=== PATIENT | female | born 1990 | race Caucasian/White ===

== ENCOUNTER 2018-06-19 11:00 | Inpatient (IN) | payer OTHER ==
[2018-06-27] MEDS ORDERED: CEFAZOLIN/Water 2 GM/20 ML SYRINGE ONE (05:56)
[2018-06-27] MEDS ORDERED: Fentanyl 100 MCG/2 ML VIAL ONE ×4 (06:54→11:09)
[2018-06-27] MEDS ORDERED: Midazolam HCl 2 mg/2 ml Vial ONE (06:54)
[2018-06-27] MEDS ORDERED: Dexamethasone 4 mg/ml Vial ONE (06:54)
[2018-06-27] MEDS ORDERED: Fentanyl 250 MCG/5 ML VIAL ONE (07:04)
[2018-06-27] MEDS ORDERED: Ondansetron HCl/PF 4 MG/2 ML Vial IVP PRN (10:42)
[2018-06-27] MEDS ORDERED: Promethazine HCl 25 MG/ML VIAL IM PRN ×2 (10:42→11:26)
[2018-06-27] MEDS ORDERED: Promethazine HCl 25 MG/ML VIAL SLOW IVP PRN (10:42)
[2018-06-27] MEDS ORDERED: HYDROcodone/Acetaminophen 10/325 mg Tablet PO PRN ×2 (11:26)
[2018-06-27] MEDS ORDERED: traMADol HCl 50 MG TAB PO PRN ×4 (11:26→13:41)
[2018-06-27] MEDS ORDERED: Ketorolac Tromethamine 30 MG/ML VIAL IVP PRN (11:26)
[2018-06-27] MEDS ORDERED: Ondansetron PF 4 MG/2 ML Vial IVP PRN (11:26)
[2018-06-27] MEDS ORDERED: Ropivacaine 0.2% 550 ML 550 ML NERVE BLCK SCH (11:26)
[2018-06-27] MEDS ORDERED: Zolpidem Tartrate 5 MG TAB PO PRN (11:26)
--- NOTE | 2018-06-27 12:54 | RAD ---
TWO VIEWS RIGHT TIBIA AND FIBULA: Comparison: 05-29-18 History: Nonunion of tibia fracture. FINDINGS/IMPRESSION: Multiple limited intraoperative fluoroscopic views of the right tibia/fibula were submitted for inter pretation. The patient has undergone removal of the fibular plate and screws. Two screws remain in th e fibula. The intramedullary sherrell is still present within the tibia and there is persistent lucencies surrounding the tibial fracture concerning for a nonunion. POS: [place]
[2018-06-27] MEDS ORDERED: Ropivacaine 0.5% HCl/PF (150 MG/30 ML VIAL) ONE (13:01)
[2018-06-27] MEDS ORDERED: Bupivacaine HCl 0.5%/Epinephrine 1:200,000/PF 30 ml Vial ONE (13:01)
[2018-06-27] MEDS ORDERED: Ondansetron PF 4 MG/2 ML Vial ONE (13:19)
[2018-06-27] MEDS ORDERED: Ketorolac Tromethamine 30 MG/ML VIAL ONE (13:19)
[2018-06-27] MEDS ORDERED: Lidocaine 1% PF 5 ML VIAL ONE (13:19)
[2018-06-27] MEDS ORDERED: PHENYLEPHRINE-NS 100 MCG/ML 10 ML SYRINGE ONE (13:19)
[2018-06-27] MEDS ORDERED: PROPOFOL 200 MG/20 ML VIAL ONE (13:19)
[2018-06-27] MEDS ORDERED: Communication Order-Pharmacy FS SCH (13:41)
[2018-06-27] MEDS ORDERED: Ondansetron PF 4 MG/2 ML Vial IV PRN (13:41)
[2018-06-27] MEDS ORDERED: TETANUS AND DIPHTHERIA TOX/PF 0.5 ML DISP.SYRIN IM SCH (13:41)
[2018-06-27 14:37] VITALS: BMI 36.0
[2018-06-27] MEDS: CEFAZOLIN 2 GM/50 ML BAG IVPB SCH ×2 (16:05→21:11)
[2018-06-27] MEDS: Fentanyl 100 MCG/2 ML VIAL IV PRN ×2 (16:05→18:49)
[2018-06-27] MEDS: Aspirin 81 mg Enteric Coated Tablet PO SCH (19:57)
[2018-06-28 05:58] LABS: #Lymphocytes 2.1 thou/uL (1.20-3.40); #Monocytes 0.9 thou/uL (0.11-0.59); #Neutrophils 10.7 thou/uL (1.40-6.50); %Basophils 0.1 % (0.0-1.0); %Eosinophils 0.2 % (0.0-10.0); %Lymphocytes 15.6 % (21.0-51.0); %Monocytes 6.3 % (0.0-10.0); %Neutrophils 77.9 % (42.0-75.0); Hemoglobin 10.5 g/dL (12.0-16.0); Mean Corpuscular HGB CONC 32.2 g/dL (32.0-36.0); Mean Corpuscular Hemoglobin 28.5 pg (27.0-31.0); Mean Corpuscular Volume 88.7 fL (78.0-98.0); Mean Platelet Volume 7.5 fL (7.4-10.4); Platelet Count 359 thou/uL (130-400); RBC Distribution Width 12.1 % (11.5-14.5); Red Blood Cell (RBC) Count 3.67 mill/uL (4.20-5.40); White Blood Cell (WBC) Count 13.8 thou/uL (4.8-10.8)
[2018-06-28] MEDS: CEFAZOLIN 2 GM/50 ML BAG IVPB SCH (06:13)
[2018-06-28] MEDS: Fentanyl 100 MCG/2 ML VIAL IV PRN (06:19)
[2018-06-28] MEDS ORDERED: Cyclobenzaprine 10 MG TAB PO PRN (08:22)
[2018-06-28] MEDS: Aspirin 81 mg Enteric Coated Tablet PO SCH (08:33)
[2018-06-28] MEDS: oxyCODONE/Acetaminophen 5 mg/325 mg Tablet PO PRN ×2 (09:29→13:30)
[2018-06-28 12:01] VITALS: BP 103/66; TEMP 98.2
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
--- NOTE | 2018-07-06 09:04 | DIS ---
DATE OF ADMISSION: 06/27/2018 DATE OF DISCHARGE: 06/28/2018 PREOPERATIVE DIAGNOSIS: Right distal tibial nonunion. POSTOPERATIVE DIAGNOSES: 1. Right distal tibial nonunion. 2. Right anterior distal lower leg ganglion cyst. SURGICAL PROCEDURE: The patient underwent, 1. Exchange reamed nailing of right tibia. 2. [place] of right tibial bone graft, OSKAR. 3. Removal of hardware, right fibula. 4. Excision of distal anterior compartment ganglion cyst. 5. Open bone graft and right tibia nonunion. HOSPITAL COURSE: Hospital stay was grossly unremarkable, admitted to [place] [id number], worked with therapy, d id well on postop day #1. DISCHARGE CONDITION: Good/stable. DISPOSITION: Home with family. FOLLOWUP: Follow up would be in 10-14 days, sooner if there are problems and/or concerns. DISCHARGE MEDICATIONS: Given with usage instructions. Mathew Lozano PA-C dictating for Owen Pemberton M.D.
== END 2018-06-28 13:47 | disposition home or self-care (01) | DRG 494 ==
LOC: SURG A 06-27 05:43
PROVIDERS: ADMIT Orthopaedic Surgery; ATTEND Orthopaedic Surgery
PROC: 0QBG0ZZ Excision of Right Tibia, Open Approach (ICD-10-PCS; principal; 2018-06-27)
PROC: 0QPG04Z Removal of Internal Fixation Device from Right Tibia, Open Approach (ICD-10-PCS; 2018-06-27)
PROC: 0QHG04Z Insertion of Internal Fixation Device into Right Tibia, Open Approach (ICD-10-PCS; 2018-06-27)
PROC: 0LBN0ZZ Excision of Right Lower Leg Tendon, Open Approach (ICD-10-PCS; 2018-06-27)
PROC: 0QUG07Z Supplement Right Tibia with Autologous Tissue Substitute, Open Approach (ICD-10-PCS; 2018-06-27)
DX: S82.301M Unspecified fracture of lower end of right tibia, subsequent encounter for open fracture type I or II with nonunion (principal); M67.461 Ganglion, right knee; V49.9XXD Car occupant (driver) (passenger) injured in unspecified traffic accident, subsequent encounter; J45.909 Unspecified asthma, uncomplicated; Z87.891 Personal history of nicotine dependence
CPT/HCPCS: 36415; 76001; 85025; 96374; A4306; C1713; C1769; G8978-GP-CK; G8979-GP-CI; J0670; J1100; J1885; J2001; J2250; J2405; J2704; J2795; J3010

== ENCOUNTER 2018-06-19 12:04 | Outpatient (CLI) | payer OTHER ==
[2018-06-19 11:41] LABS: BHCG - Serum Negative (NEGATIVE); Pregs Control Background? CLEAR/WHITE (CLR/WHITE); Pregs Control Bar Appear? YES (CONTROL BAR)
[2018-06-19 13:38] LABS: Hemoglobin 13.1 g/dL (12.0-16.0); Mean Corpuscular HGB CONC 32.3 g/dL (32.0-36.0); Mean Corpuscular Hemoglobin 28.5 pg (27.0-31.0); Mean Corpuscular Volume 88.4 fL (78.0-98.0); Mean Platelet Volume 7.7 fL (7.4-10.4); Platelet Count 372 thou/uL (130-400); RBC Distribution Width 12.2 % (11.5-14.5); Red Blood Cell (RBC) Count 4.58 mill/uL (4.20-5.40); White Blood Cell (WBC) Count 9.1 thou/uL (4.8-10.8)
== END 2018-06-19 12:05 | disposition home or self-care (01) ==
LOC: LABBT 12:04
PROVIDERS: ATTEND Orthopaedic Surgery
DX: Z01.812 Encounter for preprocedural laboratory examination (principal); S82.201A Unspecified fracture of shaft of right tibia, initial encounter for closed fracture
CPT/HCPCS: 84703; 85027; 85652; 86140

== ENCOUNTER 2018-07-26 21:46 | Inpatient (IN) | payer OTHER ==
[2018-07-26] MEDS ORDERED: cefTRIAXone\\ROCEPHIN 1 GM VIAL ONE (22:19)
[2018-07-26] MEDS ORDERED: Piperacillin/Tazobactam 3.375 GM VIAL ONE (22:34)
[2018-07-26 22:42] LABS: #Eosinphils 0.1 thou/uL (0.0-0.7); #Lymphocytes 2.2 thou/uL (1.20-3.40); #Monocytes 0.4 thou/uL (0.11-0.59); %Basophils 0.5 % (0.0-1.0); %Eosinophils 1.8 % (0.0-10.0); %Lymphocytes 28.3 % (21.0-51.0); %Monocytes 5.6 % (0.0-10.0); %Neutrophils 63.8 % (42.0-75.0); Hemoglobin 12.2 g/dL (12.0-16.0); Mean Corpuscular HGB CONC 33.2 g/dL (32.0-36.0); Mean Corpuscular Hemoglobin 28.6 pg (27.0-31.0); Mean Corpuscular Volume 86.1 fL (78.0-98.0); Mean Platelet Volume 7.2 fL (7.4-10.4); Platelet Count 402 thou/uL (130-400); RBC Distribution Width 11.4 % (11.5-14.5); Red Blood Cell (RBC) Count 4.26 mill/uL (4.20-5.40); White Blood Cell (WBC) Count 7.8 thou/uL (4.8-10.8)
[2018-07-26 23:01] LABS: ALT (SGPT) 23 U/L (8-55); AST (SGOT) 18 U/L (5-34); Albumin 4.6 g/dL (3.5-5.0); Alkaline Phosphatase 135 U/L (40-150); Anion Gap 15 mmol/L (10-20); BUN (Urea Nitrogen) 12 mg/dL (7.0-18.7); Bilirubin, Total 0.3 mg/dL (0.2-1.2); Calc. Creatinine Clearance 0 mL/min (70-130); Calcium 9.2 mg/dL (7.8-10.44); Carbon Dioxide 22 mmol/L (22-29); Chloride 105 mmol/L (98-107); Estimated GFR-MDRD 83; Globulin 3.3 g/dL (2.4-3.5); Glucose 116 mg/dL (70-105); Potassium 4.1 mmol/L (3.5-5.1); Protein, Total 7.9 g/dL (6.0-8.3); Sodium 138 mmol/L (136-145)
[2018-07-27] MEDS ORDERED: Ondansetron ODT 4 MG TAB SL PRN (01:04)
[2018-07-27] MEDS ORDERED: Ondansetron PF 4 MG/2 ML Vial IVP PRN (01:04)
[2018-07-27] MEDS ORDERED: HYDROcodone/Acetaminophen 5/325 mg Tablet PO PRN ×2 (01:04)
[2018-07-27] MEDS ORDERED: Acetaminophen 325 MG TAB PO PRN (01:04)
[2018-07-27] MEDS: Dextrose 5 %-0.45 % NaCl 1,000 ML IV SCH ×2 (01:39→12:52)
[2018-07-27 02:41] VITALS: BMI 37.2
[2018-07-27] MEDS: Piperacillin/Tazobactam 3.375 GM in Sodium Chloride 0.9% 100 ML IVPB SCH ×2 (03:42→12:52)
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
[2018-07-27] MEDS ORDERED: Vancomycin HCl 1 GM in Premix Bag 1 BAG IVPB SCH (11:00)
[2018-07-27] MEDS ORDERED: PROPOFOL 200 MG/20 ML VIAL ONE (11:25)
[2018-07-27] MEDS ORDERED: Ketorolac Tromethamine 30 MG/ML VIAL ONE (11:25)
[2018-07-27] MEDS ORDERED: Ondansetron PF 4 MG/2 ML Vial ONE (11:25)
[2018-07-27] MEDS ORDERED: Lidocaine 1% PF 5 ML VIAL ONE (11:25)
[2018-07-27] MEDS ORDERED: Fentanyl 100 MCG/2 ML VIAL ONE ×2 (13:50→14:18)
[2018-07-27] MEDS ORDERED: Promethazine HCl 25 MG/ML VIAL ONE (13:58)
[2018-07-27] MEDS ORDERED: HYDROcodone/Acetaminophen 10/325 mg Tablet PO PRN ×2 (14:46)
[2018-07-27] MEDS ORDERED: Ondansetron PF 4 MG/2 ML Vial IV PRN (14:46)
[2018-07-27] MEDS ORDERED: Communication Order-Pharmacy FS SCH (15:00)
[2018-07-27] MEDS ORDERED: CEFAZOLIN/Water 2 GM/20 ML SYRINGE SLOW IVP SCH (15:00)
[2018-07-27] MEDS ORDERED: Promethazine HCl 25 MG/ML VIAL SLOW IVP PRN (15:25)
[2018-07-27] MEDS ORDERED: Ondansetron HCl/PF 4 MG/2 ML Vial IVP PRN (15:25)
[2018-07-27] MEDS ORDERED: Promethazine HCl 25 MG/ML VIAL IM PRN (15:25)
[2018-07-27] MEDS ORDERED: TETANUS AND DIPHTHERIA TOX/PF 0.5 ML DISP.SYRIN IM SCH (16:00)
[2018-07-27 16:08] LABS: #Basophils 0.1 thou/uL (0.0-0.2); #Eosinphils 0.2 thou/uL (0.0-0.7); #Monocytes 0.5 thou/uL (0.11-0.59); #Neutrophils 4.9 thou/uL (1.40-6.50); %Basophils 0.9 % (0.0-1.0); %Eosinophils 2.5 % (0.0-10.0); %Lymphocytes 25.9 % (21.0-51.0); %Monocytes 6.8 % (0.0-10.0); %Neutrophils 63.9 % (42.0-75.0); Hemoglobin 11.2 g/dL (12.0-16.0); Mean Corpuscular HGB CONC 33.8 g/dL (32.0-36.0); Mean Corpuscular Hemoglobin 29.2 pg (27.0-31.0); Mean Corpuscular Volume 86.3 fL (78.0-98.0); Mean Platelet Volume 7.2 fL (7.4-10.4); Platelet Count 366 thou/uL (130-400); RBC Distribution Width 11.5 % (11.5-14.5); Red Blood Cell (RBC) Count 3.85 mill/uL (4.20-5.40); White Blood Cell (WBC) Count 7.6 thou/uL (4.8-10.8)
[2018-07-27 16:28] LABS: ALT (SGPT) 25 U/L (8-55); AST (SGOT) 20 U/L (5-34); Albumin 4.2 g/dL (3.5-5.0); Alkaline Phosphatase 117 U/L (40-150); Anion Gap 12 mmol/L (10-20); BUN (Urea Nitrogen) 10 mg/dL (7.0-18.7); Bilirubin, Total 0.4 mg/dL (0.2-1.2); Calc. Creatinine Clearance 152 mL/min (70-130); Calcium 8.6 mg/dL (7.8-10.44); Carbon Dioxide 24 mmol/L (22-29); Chloride 106 mmol/L (98-107); Estimated GFR-MDRD 82; Globulin 2.9 g/dL (2.4-3.5); Glucose 84 mg/dL (70-105); Potassium 4.2 mmol/L (3.5-5.1); Protein, Total 7.1 g/dL (6.0-8.3); Sodium 138 mmol/L (136-145)
[2018-07-27] MEDS: CEFAZOLIN 2 GM/50 ML-DEXTROSE 2 GM in Premix Bag 1 BAG IVPB SCH (16:49)
[2018-07-27] MEDS ORDERED: traMADol HCl 50 MG TAB PO PRN (17:13)
[2018-07-27] MEDS: traMADol HCl 50 MG TAB PO PRN (18:10)
[2018-07-27] MEDS: Aspirin 81 mg Enteric Coated Tablet PO SCH (20:41)
[2018-07-27] MEDS: Loratadine 10 MG TAB PO SCH (20:41)
--- NOTE | 2018-07-27 22:36 | OP ---
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 POSTOPERATIVE DIAGNOSIS: Chronic nonunion right tibia with a probable chronic infection. SURGEON: Ish Herman M.D. DRY CLEANING MACHINE OPERATOR HELPER: None. ANESTHESIA: General. SPECIMEN SENT: Subcutaneous tissue and bone graft material for culture. NARRATIVE REPORT: Patient was taken to the operating room, where general anesthesia was induced. Ri ght leg was prepped and draped in the usual sterile fashion. She has been placed on vancomycin and Z osyn from the emergency room. Prior to my seeing her, she was covered with antibiotics but this may interfere with cultures. I opened up the distal incision, which was distal and medial. This was the area where her original open fracture occurred. There were several 1 cm open round wound, where the leg is spontaneously drained . I opened up the area between there and extended a little bit pr oximally. The bone have been bone grafted and made a diligent effort to try and remove all of the de vitalized bone graft materials hardware infection. I used curettes and then used pulsatile lav age to clean it out. There was really just a minimal amount of purulent material in the area. Wound was packed open. The sterile dressings applied with plans for postoperative wound care. She was ju st placed on Ancef until definitive cultures were obtained.
[2018-07-28] MEDS: CEFAZOLIN 2 GM/50 ML-DEXTROSE 2 GM in Premix Bag 1 BAG IVPB SCH ×3 (00:19→18:26)
[2018-07-28] MEDS: Cyclobenzaprine 10 MG TAB PO PRN (00:19)
--- NOTE | 2018-07-28 08:22 | RAD ---
RIGHT TIBIA AND FIBULA TWO VIEWS: 07/26/18 HISTORY: Surgery one month ago. Possible incision infection. COMPARISON: Fluoroscopy, 06/27/18. Right ankle radiograph, 05/29/18. FINDINGS: There is evidence of a fractured screw in the distal aspect of the tibia. Additional fixation hardwar e with two distal fibula screws, intramedullary sherrell, and a single proximal and two distal interlockin g screws are noted traversing the tibia. Incompletely healed fracture is identified with evidence of callus formation. There does appear to ulceration along the medial aspect of the distal right lower extremity, worrisom e for an infection. There is some irregularity of the medial right tibia with possible periosteal milo ction. Possibility of infection of the underlying bones cannot be excluded. Tracks from previously re moved screws in the distal fibula are noted. IMPRESSION: 1. Internal fixation hardware as above. 2. Ulceration of the medial distal right lower extremity soft tissue with what appears to be a p eriosteal reaction involving the distal medial right tibia. Findings may represent an infectious proc ess. POS: [place]
[2018-07-28] MEDS: Aspirin 81 mg Enteric Coated Tablet PO SCH ×2 (09:13→20:19)
[2018-07-28] MEDS: traMADol HCl 50 MG TAB PO PRN (09:13)
[2018-07-28] MEDS: Enoxaparin Sodium 30 MG/0.3 ML SYRINGE SC SCH (09:14)
[2018-07-28] MEDS: Fentanyl 100 MCG/2 ML VIAL SLOW IVP PRN (12:42)
[2018-07-28] MEDS ORDERED: Vancomycin HCl 2.5 GM in Sodium Chloride 0.9% 500 ML IVPB SCH (14:00)
[2018-07-28] MEDS ORDERED: CEFAZOLIN/Water 2 GM/20 ML SYRINGE SLOW IVP SCH (17:30)
[2018-07-28] MEDS: Loratadine 10 MG TAB PO SCH (20:19)
[2018-07-28] MEDS ORDERED: Vancomycin HCl 1 GM in Premix Bag 1 BAG IVPB SCH (21:00)
[2018-07-28] MEDS ORDERED: Vancomycin HCl 1.5 GM in Sodium Chloride 0.9% 250 ML 300 ML IVPB SCH (22:00)
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
[2018-07-29] MEDS: Cyclobenzaprine 10 MG TAB PO PRN (00:15)
[2018-07-29] MEDS: Sodium Chloride 0.9% 1,000 ML IV SCH ×2 (00:16→13:33)
[2018-07-29] MEDS: CEFAZOLIN 2 GM/50 ML-DEXTROSE 2 GM in Premix Bag 1 BAG IVPB SCH ×3 (01:38→17:56)
[2018-07-29] MEDS: Enoxaparin Sodium 30 MG/0.3 ML SYRINGE SC SCH ×2 (08:17→20:56)
[2018-07-29] MEDS: Aspirin 81 mg Enteric Coated Tablet PO SCH ×2 (08:17→20:55)
[2018-07-29] MEDS ORDERED: Lidocaine 1% w/Epinephrine 1:100K 30 ML VIAL ONE (12:01)
[2018-07-29] MEDS ORDERED: Neomycin-Polymyxin 1 ML AMP ONE (12:01)
[2018-07-29] MEDS ORDERED: Fentanyl 100 MCG/2 ML VIAL ONE ×5 (12:22→15:19)
[2018-07-29] MEDS ORDERED: Midazolam HCl 2 mg/2 ml Vial ONE (12:22)
[2018-07-29 13:26] LABS: Vancomycin, Trough 10.5 ug/mL
[2018-07-29] MEDS ORDERED: Promethazine HCl 25 MG/ML VIAL IM PRN (14:56)
[2018-07-29] MEDS ORDERED: Ondansetron HCl/PF 4 MG/2 ML Vial IVP PRN (14:56)
[2018-07-29] MEDS ORDERED: Promethazine HCl 25 MG/ML VIAL SLOW IVP PRN (14:56)
[2018-07-29] MEDS: traMADol HCl 50 MG TAB PO PRN (16:08)
[2018-07-29] MEDS ORDERED: PROPOFOL 200 MG/20 ML VIAL ONE (16:24)
[2018-07-29] MEDS ORDERED: Ondansetron PF 4 MG/2 ML Vial ONE (16:24)
[2018-07-29] MEDS ORDERED: Ketorolac Tromethamine 30 MG/ML VIAL ONE (16:24)
[2018-07-29] MEDS ORDERED: Lidocaine 1% PF 5 ML VIAL ONE (16:24)
--- NOTE | 2018-07-29 18:10 | RAD ---
INTRAOPERATIVE FLUOROSCOPY: Date: 07/29/18 HISTORY: Removal and insertion of cement sherrell. COMPARISON: None. EXPOSURE: 39.9 seconds. 1.63 mGy*cm^2. FINDINGS: Intraoperative fluoroscopy demonstrates incompletely healed fracture in the distal tibia. There is a sherrell within the tibial medullary. Screws identified at the level of the distal tibia and fibula. IMPRESSION: Fluoroscopy as above. POS: [place]
[2018-07-29] MEDS: oxyCODONE/Acetaminophen 5 mg/325 mg Tablet PO PRN (19:13)
[2018-07-29] MEDS: Loratadine 10 MG TAB PO SCH (20:56)
[2018-07-30] MEDS: oxyCODONE/Acetaminophen 5 mg/325 mg Tablet PO PRN ×4 (02:02→20:02)
[2018-07-30] MEDS: CEFAZOLIN 2 GM/50 ML-DEXTROSE 2 GM in Premix Bag 1 BAG IVPB SCH ×3 (02:04→17:56)
[2018-07-30] MEDS: Sodium Chloride 0.9% 1,000 ML IV SCH (06:02)
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
[2018-07-30] MEDS: Aspirin 81 mg Enteric Coated Tablet PO SCH ×2 (08:30→20:02)
[2018-07-30] MEDS: Fentanyl 100 MCG/2 ML VIAL SLOW IVP PRN (08:53)
--- NOTE | 2018-07-30 14:11 | SPC ---
PICC PLACEMENT ULTRASOUND GUIDED VENOUS ACCESS: (Peripherally Inserted Central Catheter) Date: 07/30/18 HISTORY: 28-year-old female with infection of right leg, tibia, requiring long-term IV antibiotics. TECHNIQUE: Catheter caliber: 5 Japanese Catheter trim length: 49 cm Catheter lumen number: Single Catheter tip location: Upper portion right atrium Vein accessed: Left basilic Signed, informed consent was obtained. A tourniquet was applied at the proximal aspect of the arm. The arm was prepared and draped in the usual sterile fashion. A 25 gauge needle was used to apply bu ffered lidocaine superficially. The vein was punctured with a 21 gauge micropuncture needle under ul trasound guidance. A 0.018 inch guide wire was advanced through the micropuncture needle and into th e vein. Under fluoroscopic guidance, the guide wire was advanced to the right atrium. The PICC (per ipherally inserted central catheter) was flushed and trimmed to the appropriate length. The skin pun cture hole was widened with a blade. The micropuncture needle was exchanged over the guide wire for a 5 Japanese peel-away dilator sheath. The dilator was exchanged over the guide wire for the PICC, whi ch was then further advanced under fluoroscopy. The sheath and guide wire were removed. The PICC wa s flushed again and secured in place at the arm. The patient tolerated the procedure well. There wa s no complication. IMPRESSION: Successful placement of PICC (peripherally inserted central catheter) manfred [] POS: [facility]
[2018-07-30] MEDS: Loratadine 10 MG TAB PO SCH (20:02)
[2018-07-30] MEDS: Enoxaparin Sodium 30 MG/0.3 ML SYRINGE SC SCH (20:07)
[2018-07-31] MEDS: CEFAZOLIN 2 GM/50 ML-DEXTROSE 2 GM in Premix Bag 1 BAG IVPB SCH ×3 (02:32→17:03)
[2018-07-31] MEDS: oxyCODONE/Acetaminophen 5 mg/325 mg Tablet PO PRN ×3 (05:14→17:38)
[2018-07-31 05:42] LABS: #Eosinphils 0.2 thou/uL (0.0-0.7); #Lymphocytes 2.6 thou/uL (1.20-3.40); #Monocytes 0.6 thou/uL (0.11-0.59); #Neutrophils 6.6 thou/uL (1.40-6.50); %Basophils 0.5 % (0.0-1.0); %Eosinophils 1.5 % (0.0-10.0); %Lymphocytes 25.6 % (21.0-51.0); %Monocytes 6.1 % (0.0-10.0); %Neutrophils 66.3 % (42.0-75.0); Hemoglobin 10.6 g/dL (12.0-16.0); Mean Corpuscular HGB CONC 33.8 g/dL (32.0-36.0); Mean Corpuscular Hemoglobin 28.9 pg (27.0-31.0); Mean Corpuscular Volume 85.4 fL (78.0-98.0); Mean Platelet Volume 7.2 fL (7.4-10.4); Platelet Count 394 thou/uL (130-400); RBC Distribution Width 11.4 % (11.5-14.5); Red Blood Cell (RBC) Count 3.67 mill/uL (4.20-5.40)
[2018-07-31] MEDS: Aspirin 81 mg Enteric Coated Tablet PO SCH (09:22)
[2018-07-31 16:55] VITALS: BP 117/74; TEMP 98.1
--- NOTE | 2018-08-01 12:35 | DIS ---
DATE OF ADMISSION: 07/26/2018 DATE OF DISCHARGE: 07/31/2018 PREOPERATIVE DIAGNOSIS: Chronic infection of right open tibial fracture, status post intramedullary nailing. POSTOPERATIVE DIAGNOSIS: Chronic infection of right open tibial fracture, status post intramedullary nailing. PROCEDURE PERFORMED: The patient underwent right tibial hardware removal including tibial nail and antibiotic nail spacer placed. HOSPITAL COURSE: Hospital stay was unremarkable. The patient had no postoperative complication and she did well. She is already very adept at walking on crutches and walker, so physical therapy was fairly easy for the patient. She was seen by Dr. Hilario. Her Infectious Disease course . DISCHARGE CONDITION: Good/stable. DISPOSITION: Home with family. FOLLOWUP: Would be in 10 to 14 days or sooner if there are problems or any concerns. Job ID: [id number]
== END 2018-07-31 17:40 | disposition home or self-care (01) | DRG 493 ==
LOC: ERS 21:46 → OBSVTOIN 23:26 → SURG B 23:26 → ERS 07-27 00:42
PROVIDERS: ADMIT Orthopaedic Surgery; ATTEND Orthopaedic Surgery
PROC: 0QBG0ZZ Excision of Right Tibia, Open Approach (ICD-10-PCS; 2018-07-27)
PROC: 0QPG04Z Removal of Internal Fixation Device from Right Tibia, Open Approach (ICD-10-PCS; principal; 2018-07-29)
PROC: 0QHG04Z Insertion of Internal Fixation Device into Right Tibia, Open Approach (ICD-10-PCS; 2018-07-29)
PROC: 02H633Z Insertion of Infusion Device into Right Atrium, Percutaneous Approach (ICD-10-PCS; 2018-07-30)
PROC: B244ZZZ Ultrasonography of Right Heart (ICD-10-PCS; 2018-07-30)
DX: T84.622A Infection and inflammatory reaction due to internal fixation device of right tibia, initial encounter (principal); T81.31XA Disruption of external operation (surgical) wound, not elsewhere classified, initial encounter; S82.201K Unspecified fracture of shaft of right tibia, subsequent encounter for closed fracture with nonunion; J45.909 Unspecified asthma, uncomplicated; Z88.5 Allergy status to narcotic agent; Z88.2 Allergy status to sulfonamides; Z87.891 Personal history of nicotine dependence
CPT/HCPCS: 36415; 36569; 76001; 80053; 80202; 85025; 86140; 87040; 87070; 87076; 87077; 87149; 87186; 87205; C1713; C1751; J0696; J1650; J1885; J2001; J2250; J2405; J2543; J2550; J2704; J3010; J3370; J7050

== ENCOUNTER 2019-01-05 11:36 | Observation (INO) | payer OTHER ==
[2019-01-02 09:18] VITALS: BMI 36.0
[2019-01-05] MEDS ORDERED: Ropivacaine 0.5% HCl/PF (150 MG/30 ML VIAL) ONE (12:05)
[2019-01-05] MEDS ORDERED: Ropivacaine 0.2% HCl/PF (40 MG/20 ML VIAL) ONE (12:05)
[2019-01-05] MEDS ORDERED: Clindamycin/D5W 900 mg/50 ml Premix Bag ONE (12:43)
[2019-01-05] MEDS ORDERED: Fentanyl 100 MCG/2 ML VIAL ONE ×4 (12:46→17:09)
[2019-01-05] MEDS ORDERED: Midazolam HCl 2 mg/2 ml Vial ONE (12:46)
[2019-01-05] MEDS ORDERED: Ondansetron PF 4 MG/2 ML Vial ONE (13:18)
[2019-01-05] MEDS ORDERED: PROPOFOL 200 MG/20 ML VIAL ONE (13:18)
[2019-01-05] MEDS ORDERED: Ketorolac Tromethamine 30 MG/ML VIAL ONE (13:18)
[2019-01-05] MEDS ORDERED: Lidocaine 1% PF 5 ML VIAL ONE (13:18)
[2019-01-05] MEDS ORDERED: Glycopyrrolate 0.2 MG/ML 5 ML SYRINGE ONE (13:18)
[2019-01-05] MEDS ORDERED: Dexamethasone 20 MG/5 ML VIAL ONE (13:18)
[2019-01-05] MEDS ORDERED: Rocuronium Bromide 10 MG/ML (10ML VIAL) ONE (13:18)
[2019-01-05] MEDS ORDERED: Ropivacaine 0.2% 550 ML 550 ML NERVE BLCK SCH (13:19)
[2019-01-05] MEDS ORDERED: Fentanyl 100 MCG/2 ML VIAL IV PRN (13:19)
[2019-01-05] MEDS ORDERED: Zolpidem Tartrate 5 MG TAB PO PRN (13:19)
[2019-01-05] MEDS ORDERED: Promethazine HCl 25 MG/ML VIAL IM PRN (13:19)
[2019-01-05] MEDS ORDERED: traMADol HCl 50 MG TAB PO PRN (13:19)
[2019-01-05] MEDS ORDERED: HYDROcodone/Acetaminophen 5/325 mg Tablet PO PRN ×2 (13:19)
[2019-01-05] MEDS ORDERED: Ondansetron PF 4 MG/2 ML Vial IVP PRN (13:19)
[2019-01-05] MEDS ORDERED: Ketorolac Tromethamine 30 MG/ML VIAL IVP PRN (13:19)
--- NOTE | 2019-01-05 17:01 | RAD ---
RIGHT TIBIA AND FIBULA TWO VIEWS: History: Hardware removal, ORIF right tibia. Comparison: 06-27-18, 07-29-18 FINDINGS: Intramedullary sherrell has been removed. There is placement of elongated metal plate and screws stabilizi ng the medial aspect of the tibia from the medial malleolus proximal to the mid diaphysis. There is e xtensive thickening of the cortical region of the mid and distal tibia. IMPRESSION: Removal of the intramedullary sherrell and placement of a medial metal plate and screw stabilizing the tib ia. Continued short term follow up studies. POS: [facility]
[2019-01-05] MEDS ORDERED: RENALLY ADJUST ANTIBIOTICS FS SCH (17:57)
[2019-01-05] MEDS: traMADol HCl 50 MG TAB PO PRN (19:51)
[2019-01-05] MEDS: Vancomycin HCl 1.5 GM in Sodium Chloride 0.9% 250 ML 300 ML IVPB SCH (19:54)
[2019-01-05] MEDS: Aspirin 81 mg Enteric Coated Tablet PO SCH (22:23)
--- NOTE | 2019-01-06 | OP ---
DATE OF PROCEDURE: 01/05/2019 OPERATIONS PERFORMED: 1. Open reduction and internal fixation of right tibia, nonunion. 2. Right tibia intramedullary nail removal. PREOPERATIVE DIAGNOSIS: Right tibial nonunion, infected with previous cement nail placement. POSTOPERATIVE DIAGNOSIS: Right tibial nonunion, infected with previous cement nail placement. COMPLICATIONS: None. ESTIMATED BLOOD LOSS: Minimal. TOWER HELPER: Jenny Guido PA-C. IMPLANTS: Synthes medial tibial plate, size 14-hole with multiple locking screws. INDICATIONS: Ms. Gonzáles is a 28-year-old female who has a history of open tibia fracture many years ago. She had a chronic infected nonunion. She underwent tibial nail removal and cement nail placement approximately 3 months ago. She has now cleared her infection. She has been indicated for cement nail removal and revision tibial nail versus plating. Risks have been reviewed in detail. Risks to include ongoing infection, nonunion, malunion, wound dehiscence, and others. DESCRIPTION OF PROCEDURE: Ms. Gonzáles was identified in the preoperative holding area. Her correct extremity was marked. She was carried to the operating room. She was positioned supine. General anesthesia was induced. A multidisciplinary time-out was performed. The right lower extremity was prepped and draped in sterile fashion. We began the procedure with an anterior approach to the knee. We dissected down to the tibial plateau. The plateau was cleared of fat pad tissue and we exposed the top of the Fletcher sherrell with the patient's cement nail. The Fletcher sherrell was then backslapped out of the knee. The proximal aspect of the cement came with the Fletcher sherrell, however, the distal aspect of the cement did not come out. We tried with our [place] cement removal tray as well as curettes and osteotomes to remove the cement, but it became obvious that we were going to cause significant damage to the tibia if we continued and this would not be worthwhile. So instead of proceeding with intramedullary nail, we decided to plate the tibia nonunion. We made a medial approach through the patient's previous scars. We dissected down through the subcutaneous tissues to the bony level. The bone was identified and cleared of fibrous tissue. We used a rongeur to level the medial aspect of the bone allowing our plate to sit flush. At this point, we slid a 14-hole plate from distal to proximal. We placed multiple locking screws proximally and distally locking the plate to the bone. We took x-ray images confirming plate position and hardware placement. There were no complications. We obtained rigid fixation with our instrumentation. Once we were satisfied with a number of screws, we took final images. We then packed bone graft which we had removed from the callus around the plate and fracture site. At this point, we closed with 2-0 Vicryl suture followed by nylon suture. A sterile dressing was applied. The patient was taken to the recovery room in good condition after a splint was placed. Job ID: [id number]
[2019-01-06] MEDS: traMADol HCl 50 MG TAB PO PRN ×2 (01:57→11:04)
[2019-01-06] MEDS: Vancomycin HCl 1.5 GM in Sodium Chloride 0.9% 250 ML 300 ML IVPB SCH (06:59)
[2019-01-06] MEDS ORDERED: diphenhydrAMINE 50 MG CAP PO PRN (07:02)
[2019-01-06 08:18] VITALS: BP 102/58; TEMP 98.7
[2019-01-06 09:59] LABS: #Lymphocytes 2.5 thou/uL (1.20-3.40); #Monocytes 0.7 thou/uL (0.11-0.59); %Eosinophils 0.2 % (0.0-10.0); %Lymphocytes 15.1 % (21.0-51.0); %Monocytes 4.3 % (0.0-10.0); %Neutrophils 80.4 % (42.0-75.0); Hemoglobin 10.5 g/dL (12.0-16.0); Mean Corpuscular HGB CONC 32.2 g/dL (32.0-36.0); Mean Corpuscular Hemoglobin 27.3 pg (27.0-31.0); Mean Corpuscular Volume 84.9 fL (78.0-98.0); Mean Platelet Volume 7.4 fL (7.4-10.4); Platelet Count 357 thou/uL (130-400); RBC Distribution Width 12.9 % (11.5-14.5); Red Blood Cell (RBC) Count 3.85 mill/uL (4.20-5.40); White Blood Cell (WBC) Count 16.2 thou/uL (4.8-10.8)
[2019-01-06] MEDS: Aspirin 81 mg Enteric Coated Tablet PO SCH (11:04)
== END 2019-01-06 11:31 | disposition home or self-care (01) ==
LOC: SDC 11:36 → 3SE 16:23
PROVIDERS: ADMIT Orthopaedic Surgery; ATTEND Orthopaedic Surgery
PROC: 0QSG04Z Reposition Right Tibia with Internal Fixation Device, Open Approach (ICD-10-PCS; principal; 2019-01-06)
PROC: 0QUG07Z Supplement Right Tibia with Autologous Tissue Substitute, Open Approach (ICD-10-PCS; 2019-01-06)
DX: T84.7XXA Infection and inflammatory reaction due to other internal orthopedic prosthetic devices, implants and grafts, initial encounter (principal); S82.201A Unspecified fracture of shaft of right tibia, initial encounter for closed fracture
CPT/HCPCS: 36415; 76000; 85025; 96361; 96365; 96366; A4306; C1713; C1769; G0378; J1100; J1885; J2001; J2250; J2405; J2704; J2795; J3010; J3370; J3490; J7050; Q0153

== ENCOUNTER 2019-03-16 18:00 | Outpatient (CLI) | payer OTHER | END 2019-03-16 18:01 | disposition home or self-care (01) | LOC: SLEEPLAB 18:00 | PROVIDERS: ATTEND Family Medicine | DX: G47.33 Obstructive sleep apnea (adult) (pediatric) (principal); R53.83 Other fatigue; R06.89 Other abnormalities of breathing; R09.02 Hypoxemia; G47.10 Hypersomnia, unspecified | CPT/HCPCS: 95806 ==

== ENCOUNTER 2019-04-13 19:30 | Outpatient (CLI) | payer OTHER | END 2019-04-13 19:31 | disposition home or self-care (01) | LOC: SLEEPLAB 19:30 | PROVIDERS: ATTEND Family Medicine | DX: G47.33 Obstructive sleep apnea (adult) (pediatric) (principal); R53.83 Other fatigue; R06.83 Snoring | CPT/HCPCS: 95810 ==

== ENCOUNTER 2019-04-25 20:30 | Outpatient (CLI) | payer OTHER | END 2019-04-25 20:31 | disposition home or self-care (01) | LOC: SLEEPLAB 20:30 | PROVIDERS: ATTEND Family Medicine | DX: G47.33 Obstructive sleep apnea (adult) (pediatric) (principal); R53.83 Other fatigue; R06.83 Snoring; R09.02 Hypoxemia; G47.10 Hypersomnia, unspecified; E66.9 Obesity, unspecified; Z68.37 Body mass index [BMI] 37.0-37.9, adult | CPT/HCPCS: 95811 ==